=== PATIENT | male | born 1990 | race Caucasian/White ===

== ENCOUNTER 2019-10-03 18:18 | Emergency (ER) | payer OTHER ==
[2019-10-03 19:13] VITALS: BP 130/87
[2019-10-03] MEDS ORDERED: Tetan/Diph/Pertus SYR(Tdap)* 0.5 ML SYR(BOOSTRIX) use SYR contains LATEX IM ONE (19:25)
--- NOTE | 2019-10-03 19:35 | UC ---
Laceration HPI - HPI Summary HPI Summary: 28-year-old male presents with complaints of a scalp laceration. States approximately states approximately an hour prior to arrival in the accidentally struck the right side of his head on a metal bar that was part of a cattle stanchion. No loss of consciousness. Bleeding was controlled with direct pressure prior to arrival. Last tetanus is unknown. Denies headache, visual disturbances, dizziness, memory loss, difficulty concentrating, nausea, or vomiting. - History Of Current Complaint Chief Complaint: UCLaceration Stated Complaint: SCRAP TO HEAD ON GEOFFREY PIPE Time Seen by Provider: 10/03/19 19:08 Hx Obtained From: Patient Pain Intensity: 0 - Allergies/Home Medications Allergies/Adverse Reactions: Allergies Allergy/AdvReac Type Severity Reaction Status Date / Time amoxicillin Allergy Hives Verified 10/03/19 19:14 Home Medications: Home Medications Cetirizine* [ZyrTEC 10 MG TAB*] 10 mg PO DAILY 10/03/19 [History Confirmed 10/03] Fluticasone/Vilanterol MDI(NF) [Breo Ellipta MDI (NF)] 1 puff INH DAILY [History Confirmed 10/03/19] Montelukast Sodium TAB* [Singulair TAB*] 10 mg PO DAILY 10/03/19 [History Confirmed 10/03/19] PMH/Surg Hx/FS Hx/Imm Hx Previously Healthy: Yes - Surgical History Surgical History: None - Family History Known Family History: Positive: Non-Contributory - Social History Occupation: Works From/At Home Lives: Alone Alcohol Use: Occasionally Substance Use Type: None Smoking Status (MU): Never Smoked Tobacco Review of Systems All Other Systems Reviewed And Are Negative: Yes Constitutional: Positive: Negative Skin: Positive: Other - See HPI Eyes: Negative: Blurred Vision, Diplopia, Photophobia Respiratory: Positive: Negative Cardiovascular: Positive: Negative Gastrointestinal: Positive: Negative Genitourinary: Positive: Negative Musculoskeletal: Positive: Negative Neurological: Negative: Headache, Weakness, Paresthesia, Numbness Physical Exam - Summary Physical Exam Summary: GENERAL APPEARANCE: Well developed, well nourished, alert and cooperative, and appears to be in no acute distress. HEAD: Normocephalic. Superficial linear laceration to right parietal scalp with bleeding controlled. EYES: Conjunctiva clear. No drainage. PERRL, EOM intact. Vision is grossly intact. NECK: Neck supple, non-tender. Full ROM CARDIAC: Normal S1 and S2. No S3, S4 or murmurs. Rhythm is regular. There is no peripheral edema, cyanosis or pallor. Extremities are warm and well perfused. Capillary refill is less than 2 seconds. Peripheral pulses intact. LUNGS: Clear to auscultation without rales, rhonchi, wheezing or diminished breath sounds. ABDOMEN: Positive bowel sounds. Soft, nondistended, nontender. No guarding or rebound. No masses or hepatosplenomegally. MUSKULOSKELETAL: ROM intact to all extremities. No joint erythema or tenderness. Normal muscular development. Normal gait. NEUROLOGICAL: Strength and sensation symmetric and intact throughout. SKIN: Skin normal color, texture and turgor. Triage Information Reviewed: Yes Vital Signs: Initial Vital Signs Temp 98.1 F 10/03/19 19:09 Pulse 91 10/03/19 19:09 Resp 16 10/03/19 19:09 BP 130/87 10/03/19 19:09 Pulse Ox 97 10/03/19 19:09 Vital Signs Reviewed: Yes Laceration Repair - Laceration Repair 1 Description: Linear Laceration Size After Repair: Length (cm) - 2 cm Modified For Repair: No Irrigation With Pressure Irrigation Device: Yes Closure Material: Abraham - 3 Laceration Course/Dx - Course/Dx Course Of Treatment: 28-year-old male presents with complaints of a scalp laceration. States approximately states approximately an hour prior to arrival in the accidentally struck the right side of his head on a metal bar that was part of a cattle stanchion. No loss of consciousness. Bleeding was controlled with direct pressure prior to arrival. Last tetanus is unknown. Denies headache, visual disturbances, dizziness, memory loss, difficulty concentrating, nausea, or vomiting. Afebrile. Vital signs stable. Patient had a superficial linear laceration to the right parietal scalp with bleeding controlled, was neurologically intact, and had an otherwise unremarkable exam. The wound was thoroughly irrigated with sterile saline by the RN prior to wound closure. The wound was closed with a total of 3 abraham. Patient tolerated procedure well. He is to return in 7 days for staple removal. Wound care, anticipatory guidance , and warning symptoms are reviewed with the patient. Verbalizes understanding and agrees with plan of care. - Differential Dx - Laceration/Wound Differental Diagnoses: Laceration, Other - Closed head injury, skull fracture - Diagnosis Provider Diagnosis: Scalp laceration Discharge ED - Sign-Out/Discharge Documenting (check all that apply): Patient Departure All imaging exams completed and their final reports reviewed: No Studies - Discharge Plan Condition: Stable Disposition: HOME Patient Education Materials: Laceration (ED), Staple Care (ED) Referrals: Ignacio Estes [Primary Care Provider] - Additional Instructions: You may shower and wash your hair as normal. No hard scrubbing over the wound. Use acetaminophen (Tylenol) or ibuprofen (Advil, Motrin) according to directions as needed for pain. [place] will need to be removed in 7 days. You may return here or with your primary care provider to have this done. Watch for signs of infection including fever greater than 100.5 F, severe pain not managed with pain medication, redness that spreads, swelling around the wound, or pus draining from the wound. Seek immediate medical attention should any of these occur. - Billing Disposition and Condition Condition: STABLE Disposition: Home
== END 2019-10-03 19:45 | disposition home or self-care (01) ==
LOC: UCCORT 18:18
DX: S01.01XA Laceration without foreign body of scalp, initial encounter (principal); Z88.0 Allergy status to penicillin; W22.8XXA Striking against or struck by other objects, initial encounter; Y93.F9 Activity, other caregiving; Y92.9 Unspecified place or not applicable; Z23 Encounter for immunization
CPT/HCPCS: 12001; 90471; 90715; 99211; G0463